=== PATIENT | male | born 1960 | race Caucasian/White ===

== ENCOUNTER 2018-09-16 13:54 | Outpatient (CLI) | payer BC ==
--- NOTE | 2018-09-16 14:29 | RAD ---
TWO VIEW RIGHT HIP SERIES: Indication: Pain. FINDINGS: There is no evidence of fracture or dislocation. Mild osteoarthritis. IMPRESSION: No acute osseous abnormality of the right hip. POS: [facility]
--- NOTE | 2018-09-16 14:50 | RAD ---
LUMBAR SPINE THREE VIEWS: INDICATIONS: Lumbar radiculopathy. FINDINGS: Three view lumbar spine series, including neutral and flexion and extension lateral views reveals no evidence of significant subluxation or discernible translational motion. There is multilevel endplat e degenerative change. There is moderate disk space narrowing at L4-L5. There is mild disk space na rrowing at L5-S1. Multiple degenerative facet hypertrophy and sclerosis is present. IMPRESSION: No abnormal translational motion or significant listhesis on the provided lateral views of the lumbar spine. POS: [facility]
--- NOTE | 2018-09-16 15:35 | MRI ---
LUMBAR SPINE MRI NONCONTRAST: 09/16/18 INDICATION: Lumbar radiculopathy. FINDINGS: There is normal morphology. Conus medullaris which terminates at the L1-2 level. There is Modic type I degenerative process of the end plates of L4 and L5 with associated disc space narrowing. There is no significant central canal or neural foraminal stenosis at L1-2 or L2-3 levels. L3-4: Mild ventral thecal sac effacement due to broad based disc osteophyte without high grade femora l stenosis. L4-5: Broad based disc osteophyte with mild effacement of ventral thecal sac. There is moderate to se abhilash right and mild left foraminal stenosis. L5-S1: Mild disc osteophyte effaces the ventral thecal sac without significant central canal stenosis . there is moderate left and mild to moderate right neural foraminal stenosis. Multilevel degenerative bilateral facet hypertrophy is present, mild to moderate in degree. IMPRESSION: Degenerative changes of the lumbar spine at the L4-5 and L5-S1 levels, as discussed above. POS: [facility]
== END 2018-09-16 13:55 | disposition home or self-care (01) ==
LOC: TBSIIMAG 13:54
PROVIDERS: ATTEND Nurse Practitioner Family
DX: M47.26 Other spondylosis with radiculopathy, lumbar region (principal); M47.27 Other spondylosis with radiculopathy, lumbosacral region
CPT/HCPCS: 72100; 72148

== ENCOUNTER 2019-08-03 17:51 | Emergency (ER) | payer BC, OTHER ==
[2019-08-03] MEDS ORDERED: Adacel (T-DAP) 0.5 ML SYRINGE ONE (18:38)
== END 2019-08-03 19:00 | disposition home or self-care (01) ==
LOC: SCSER 17:51
DX: S01.81XA Laceration without foreign body of other part of head, initial encounter (principal); I25.2 Old myocardial infarction; Z79.899 Other long term (current) drug therapy; Z23 Encounter for immunization; W22.8XXA Striking against or struck by other objects, initial encounter
CPT/HCPCS: 12011; 90471; 90715

== ENCOUNTER 2019-12-17 05:48 | Observation (INO) | payer BC ==
[2019-12-17 07:06] LABS: #Eosinphils 0.1 thou/uL (0.0-0.7); #Lymphocytes 0.9 thou/uL (1.20-3.40); #Monocytes 0.4 thou/uL (0.11-0.59); #Neutrophils 2.2 thou/uL (1.40-6.50); %Basophils 0.7 % (0.0-1.0); %Lymphocytes 25.1 % (21.0-51.0); %Monocytes 10.4 % (0.0-10.0); %Neutrophils 60.8 % (42.0-75.0); Hemoglobin 13.8 g/dL (14.0-18.0); Mean Corpuscular HGB CONC 33.6 g/dL (32.0-36.0); Mean Corpuscular Hemoglobin 31.2 pg (27.0-31.0); Mean Platelet Volume 8.2 fL (7.4-10.4); Platelet Count 167 thou/uL (130-400); RBC Distribution Width 12.6 % (11.5-14.5); Red Blood Cell (RBC) Count 4.42 mill/uL (4.70-6.10); White Blood Cell (WBC) Count 3.5 thou/uL (4.8-10.8)
[2019-12-17 07:12] LABS: INR-International Normal Ratio 1.1; PTT 29.5 SEC (22.9-36.1); Prothrombin Time 13.8 SEC (12.0-14.7)
[2019-12-17 07:24] LABS: Anion Gap 9 mmol/L (10-20); BUN (Urea Nitrogen) 22 mg/dL (8.4-25.7); Calc. Creatinine Clearance 131 mL/min (70-130); Calcium 9.4 mg/dL (7.8-10.44); Carbon Dioxide 30 mmol/L (22-29); Chloride 107 mmol/L (98-107); Estimated GFR-MDRD 89; Glucose 95 mg/dL (70-105); Sodium 142 mmol/L (136-145)
[2019-12-17] MEDS ORDERED: Diazepam 5 MG TAB ONE (07:30)
[2019-12-17] MEDS ORDERED: Heparin (Artline) 1,000 ML ONE (08:08)
[2019-12-17] MEDS ORDERED: Fentanyl 100 MCG/2 ML VIAL ONE (08:09)
[2019-12-17] MEDS ORDERED: Midazolam HCl 2 mg/2 ml Vial ONE (08:09)
[2019-12-17] MEDS ORDERED: Lidocaine 1% (PF) 30 ML VIAL ONE (08:09)
[2019-12-17 08:21] LABS: Cardiac Risk 2.2 (Less than 4.5)
[2019-12-17] MEDS ORDERED: Iopamidol 370 76% 100 ML VIAL ONE (09:02)
[2019-12-17] MEDS ORDERED: Iopamidol 370 76% 50 ML VIAL FS ONE (09:02)
[2019-12-17] MEDS ORDERED: Nitroglycerin 100MG/250ML BOT 250 ML ONE (09:18)
[2019-12-17] MEDS ORDERED: Heparin 10,000 UNITS/1 ML VIAL ONE ×2 (09:52→10:02)
[2019-12-17] MEDS ORDERED: diphenhydrAMINE 50 MG/ML VIAL ONE (10:34)
[2019-12-17] MEDS ORDERED: Hydrocortisone Sod Succ/PF 100 mg/2 ml Vial ONE (10:48)
[2019-12-17] MEDS ORDERED: Aspirin Chewable 81 MG TAB ONE (12:06)
[2019-12-17] MEDS ORDERED: Nitroglycerin 0.4 MG TAB (25 Tab Bottle) SL PRN (15:48)
[2019-12-17] MEDS ORDERED: Morphine 2 MG/ML SYRINGE SLOW IVP PRN (15:48)
[2019-12-17] MEDS ORDERED: Morphine 4 MG/ML VIAL SLOW IVP PRN (15:49)
[2019-12-17] MEDS ORDERED: Sodium Chloride 0.9% 1,000 ML IV SCH (16:00)
[2019-12-17] MEDS ORDERED: Aspirin Chewable 81 MG TAB PO SCH (16:00)
[2019-12-17 16:44] VITALS: BMI 29.7
--- NOTE | 2019-12-17 17:01 | EKG ---
Test Reason : PREOP Blood Pressure : / mmHG Vent. Rate : 056 BPM Atrial Rate : 056 BPM P-R Int : 194 ms QRS Dur : 090 ms QT Int : 408 ms P-R-T Axes : 081 030 060 degrees QTc Int : 393 ms Sinus bradycardia Otherwise normal ECG Confirmed by YARA MOLINA ([id number]) on 12/17/2019 5:00:32 PM Referred By: MARCIE Confirmed By:YARA MOLINA
[2019-12-17] MEDS ORDERED: Ezetimibe 10 MG TAB PO SCH (21:00)
[2019-12-17] MEDS ORDERED: Atorvastatin Calcium 40 MG TAB PO SCH (21:00)
[2019-12-17] MEDS: TICAGRELOR 90 MG TABLET PO SCH (21:05)
[2019-12-17] MEDS: Carvedilol 3.125 MG TAB PO SCH (21:05)
[2019-12-17] MEDS: Sacubitril 49 MG/Valsartan 51 MG TABLET PO SCH (21:05)
[2019-12-18 04:57] LABS: #Eosinphils 0.1 thou/uL (0.0-0.7); #Lymphocytes 1.2 thou/uL (1.20-3.40); #Monocytes 0.5 thou/uL (0.11-0.59); #Neutrophils 3.4 thou/uL (1.40-6.50); %Basophils 0.9 % (0.0-1.0); %Eosinophils 2.6 % (0.0-10.0); %Lymphocytes 23.2 % (21.0-51.0); %Monocytes 8.8 % (0.0-10.0); %Neutrophils 64.5 % (42.0-75.0); Hemoglobin 13.1 g/dL (14.0-18.0); Mean Corpuscular HGB CONC 32.9 g/dL (32.0-36.0); Mean Corpuscular Hemoglobin 30.8 pg (27.0-31.0); Mean Corpuscular Volume 93.8 fL (78.0-98.0); Mean Platelet Volume 7.9 fL (7.4-10.4); Platelet Count 145 thou/uL (130-400); RBC Distribution Width 12.7 % (11.5-14.5); Red Blood Cell (RBC) Count 4.25 mill/uL (4.70-6.10); White Blood Cell (WBC) Count 5.2 thou/uL (4.8-10.8)
[2019-12-18 05:13] LABS: ALT (SGPT) 28 U/L (8-55); AST (SGOT) 24 U/L (5-34); Albumin 3.9 g/dL (3.5-5.0); Alkaline Phosphatase 47 U/L (40-110); Anion Gap 8 mmol/L (10-20); BUN (Urea Nitrogen) 18 mg/dL (8.4-25.7); Bilirubin, Total 0.9 mg/dL (0.2-1.2); Calc. Creatinine Clearance 139 mL/min (70-130); Calcium 8.8 mg/dL (7.8-10.44); Carbon Dioxide 27 mmol/L (22-29); Chloride 107 mmol/L (98-107); Estimated GFR-MDRD Greater than 90; Globulin 2.3 g/dL (2.4-3.5); Glucose 91 mg/dL (70-105); Potassium 3.8 mmol/L (3.5-5.1); Protein, Total 6.2 g/dL (6.0-8.3); Sodium 138 mmol/L (136-145)
[2019-12-18 07:57] VITALS: BP 103/55; TEMP 97.3
[2019-12-18] MEDS: Carvedilol 3.125 MG TAB PO SCH (08:57)
[2019-12-18] MEDS: Sacubitril 49 MG/Valsartan 51 MG TABLET PO SCH (08:57)
[2019-12-18] MEDS: TICAGRELOR 90 MG TABLET PO SCH (08:57)
[2019-12-18] MEDS ORDERED: Aspirin Chewable 81 MG TAB PO SCH (09:00)
[2019-12-18] MEDS ORDERED: Famotidine 20 MG TAB PO SCH (09:00)
--- NOTE | 2019-12-21 08:52 | EKG ---
Test Reason : S/P STENTS (2) Blood Pressure : / mmHG Vent. Rate : 059 BPM Atrial Rate : 059 BPM P-R Int : 190 ms QRS Dur : 094 ms QT Int : 410 ms P-R-T Axes : 058 057 066 degrees QTc Int : 405 ms Sinus bradycardia Septal infarct , age undetermined cannot be excluded Abnormal ECG Confirmed by YARA MOLINA ([id number]) on 12/21/2019 8:52:29 AM Referred By: MARCIE Confirmed By:YARA MOLINA
--- NOTE | 2019-12-21 08:59 | EKG ---
Test Reason : Blood Pressure : / mmHG Vent. Rate : 053 BPM Atrial Rate : 053 BPM P-R Int : 190 ms QRS Dur : 098 ms QT Int : 414 ms P-R-T Axes : 072 042 060 degrees QTc Int : 388 ms Sinus bradycardia Nonspecific ST abnormality Abnormal ECG Confirmed by YARA MOLINA ([id number]) on 12/21/2019 8:59:12 AM Referred By: MARCIE Confirmed By:YARA MOLINA
--- NOTE | 2019-12-21 11:46 | DIS ---
DATE OF ADMISSION: 12/17/2019 DATE OF DISCHARGE: 12/18/2019 FINAL DIAGNOSES: 1. Coronary artery disease. 2. Previous myocardial infarction. PROCEDURE: Left heart catheterization, intracoronary stent implantation. The patient was brought to cardiac catheterization lab yesterday. He had an LAD stent in the proximal third of the LAD. There were some proximal LAD lesions which were not obstructive. There was a 70% lesion more distally and then a 95% lesion distal to that. The LAD did wrap around the apex. The patient had been having ongoing chest pressure. Therefore, we decided to go and intervene on these other two lesions. Two stents were placed. A 2.25 x 12 mm drug coated stent was placed in the distal lesion and a 3.0 x 16 mm drug coated stent was placed in the more proximal lesion. The patient tolerated these well. The patient did start shaking at the end of the procedure, it was unclear how much of that was him being cold, whether some of it could be related to iodine allergy. He was given Benadryl and hydrocortisone and given warm blankets and it all resolved, I think most of it is probably being cold, but there is some chance that some of this could be iodine related. The patient will be going home on the same medicines that he came in on including aspirin, ticagrelor, Entresto, carvedilol, Lipitor, and Zetia. He will see us in couple of weeks. Job ID: [id number]
== END 2019-12-18 10:18 | disposition home or self-care (01) ==
LOC: CCL 05:48 → 2SW 10:02
PROVIDERS: ADMIT Internal Medicine Cardiovascular Disease; ATTEND Internal Medicine Cardiovascular Disease
PROC: 4A023N7 Measurement of Cardiac Sampling and Pressure, Left Heart, Percutaneous Approach (ICD-10-PCS; principal; 2019-12-18)
PROC: B2111ZZ Fluoroscopy of Multiple Coronary Arteries using Low Osmolar Contrast (ICD-10-PCS; 2019-12-18)
DX: I25.10 Atherosclerotic heart disease of native coronary artery without angina pectoris (principal); I25.2 Old myocardial infarction; I11.0 Hypertensive heart disease with heart failure; I50.22 Chronic systolic (congestive) heart failure; I48.0 Paroxysmal atrial fibrillation; E78.00 Pure hypercholesterolemia, unspecified; Z88.0 Allergy status to penicillin; Z79.899 Other long term (current) drug therapy; K21.9 Gastro-esophageal reflux disease without esophagitis
CPT/HCPCS: 36415; 76942; 80048; 80053; 80061; 85025; 85347; 85610; 85730; 92928; 93005; 93010; 93458; 99152; 99153; C1769; C1874; C1887; C9600; G0378; J1200; J1644; J1720; J2001; J2250; J3010; Q9967